=== PATIENT | male | born 1970 | race Caucasian/White ===

== ENCOUNTER 2021-04-29 17:23 | Emergency (ER) | payer OTHER ==
[~2021-04-29] VITALS: Ht 185.4 cm; Wt 95.3 kg
[2021-04-29] MEDS ORDERED: BACTRIM DS TAB1 EAC1 PO (18:34)
[2021-04-29 18:46] VITALS: BP 177/111
== END 2021-04-29 18:46 | disposition home or self-care (01) ==
LOC: M.ERS 17:23
DX: S01.81XA Laceration without foreign body of other part of head, initial encounter (principal); W22.8XXA Striking against or struck by other objects, initial encounter; Y93.89 Activity, other specified; Y92.89 Other specified places as the place of occurrence of the external cause; Y99.8 Other external cause status